=== PATIENT | male | born 1990 | race Caucasian/White ===

== ENCOUNTER 2018-11-20 13:46 | Inpatient (IN) | payer OTHER | END 2018-11-24 06:45 | disposition home or self-care (01) | LOC: YASAS 13:46 → Y6N 17:21 ==

== ENCOUNTER 2020-09-12 10:25 | Inpatient (IN) | payer OTHER ==
[2020-09-12 12:16] VITALS: BMI 41.5
[2020-09-12] MEDS ORDERED: BISMUTH SUBSALICYLATE 524 MG/30 ML UD PO PRN (14:15)
[2020-09-12] MEDS ORDERED: MAGNESIUM HYDROX 2400MG/30ML ORAL SUSPENSION 30 ML CUP PO PRN (14:15)
[2020-09-12] MEDS ORDERED: ONDANSETRON *ODT* 4 MG TABLET SL PRN (14:15)
[2020-09-12] MEDS ORDERED: LORazepam 1 MG TABLET PO PRN (14:15)
[2020-09-12] MEDS ORDERED: METHADONE HCL 10 MG TABLET (FOR DETOX USE ONLY) PO ONE (14:15)
[2020-09-12] MEDS ORDERED: NICOTINE POLACRILEX 2 MG GUM BUC PRN (14:15)
[2020-09-12] MEDS ORDERED: MAG HYDROX/AL HYDROX/SIMETH 30 ML UNIT-DOSE CUP PO PRN (14:15)
[2020-09-12] MEDS ORDERED: IBUPROFEN 400 MG TABLET (FP) PO PRN (14:15)
[2020-09-12] MEDS ORDERED: MENTHOL/PHENOL 1 EACH UD MM PRN (14:15)
[2020-09-12] MEDS ORDERED: MAGNESIUM CITRATE 300 ML BOTTLE PO PRN (14:15)
[2020-09-12] MEDS ORDERED: ACETAMINOPHEN 325 MG TABLET (FP) PO PRN ×2 (14:15)
[2020-09-12] MEDS ORDERED: METHOCARBAMOL 500 MG TABLET PO PRN (14:15)
[2020-09-12] MEDS: LORazepam 2 MG TABLET PO SCH ×2 (18:22→22:11)
[2020-09-12] MEDS: hydrOXYzine PAMOATE 25 MG CAPSULE (FP) PO SCH ×2 (18:23→22:13)
[2020-09-12] MEDS ORDERED: QUEtiapine FUMARATE 100 MG TABLET (FP) PO ONE (22:00)
[2020-09-12] MEDS: THIAMINE HCL 100 MG TABLET (FP) PO SCH (22:13)
[2020-09-12] MEDS: MELATONIN 5 MG TABLETS PO SCH (22:13)
[2020-09-13] MEDS: hydrOXYzine PAMOATE 25 MG CAPSULE (FP) PO SCH ×5 (05:54→22:30)
[2020-09-13] MEDS: LORazepam 2 MG TABLET PO SCH ×4 (05:54→22:29)
[2020-09-13] MEDS ORDERED: METHADONE HCL 5 MG TABLET (FOR DETOX USE ONLY) ONE (09:21)
[2020-09-13] MEDS ORDERED: METHADONE HCL 10 MG TABLET (FOR DETOX USE ONLY) ONE (09:21)
[2020-09-13] MEDS ORDERED: METHADONE (DETOX) 20 MG, METHADONE (DETOX) 5 MG PO ONE (10:00)
[2020-09-13] MEDS: PRENATAL VITAMINS W/ FOLIC ACID TABLET (FP) PO SCH (10:09)
[2020-09-13] MEDS: NICOTINE 21 MG/24 HOURS TOPICAL PATCH TD SCH (10:10)
[2020-09-13 10:41] LABS: POTASSIUM 4.2 mmol/L (3.5-5.1)
[2020-09-13 10:44] LABS: CALCIUM 8.7 mg/dL (8.5-10.1)
[2020-09-13 10:45] LABS: ALBUMIN 3.6 g/dl (3.4-5.0)
[2020-09-13 10:47] LABS: HEMATOCRIT 40.6 % (35.4-49); MCHC 34.5 g/dl (32.0-35.9); MEAN CELL VOLUME 81.3 fl (80-96); MEAN PLT VOLUME 8.6 fl (7.5-11.1); PLATELET COUNT 252 K/MM3 (134-434); RBC 4.99 M/mm3 (4.00-5.60); WHITE BLOOD COUNT 7.5 K/mm3 (4.0-10.0)
[2020-09-13 10:48] LABS: CREATININE 0.9 mg/dL (0.55-1.3)
[2020-09-13 10:49] LABS: BILIRUBIN,TOTAL 0.8 mg/dL (0.2-1)
[2020-09-13 10:50] LABS: TOT PROT 6.4 g/dl (6.4-8.2)
[2020-09-13] MEDS: cloNIDine HCL 0.1 MG TABLET PO PRN (17:47)
[2020-09-13] MEDS: MELATONIN 5 MG TABLETS PO SCH (22:30)
[2020-09-13] MEDS: THIAMINE HCL 100 MG TABLET (FP) PO SCH (22:30)
[2020-09-13] MEDS: QUEtiapine FUMARATE 100 MG TABLET (FP) PO PRN (22:31)
[2020-09-14] MEDS: hydrOXYzine PAMOATE 25 MG CAPSULE (FP) PO SCH ×5 (05:37→22:09)
[2020-09-14] MEDS: LORazepam 1 MG TABLET PO SCH ×4 (05:37→22:05)
[2020-09-14] MEDS ORDERED: METHADONE HCL 10 MG TABLET (FOR DETOX USE ONLY) PO ONE (10:00)
[2020-09-14] MEDS: NICOTINE 21 MG/24 HOURS TOPICAL PATCH TD SCH (10:19)
[2020-09-14] MEDS: PRENATAL VITAMINS W/ FOLIC ACID TABLET (FP) PO SCH (10:19)
[2020-09-14] MEDS: cloNIDine HCL 0.1 MG TABLET PO PRN ×2 (11:47→17:45)
[2020-09-14] MEDS ORDERED: COLLOIDAL OATMEAL 1 BAR EACH TP PRN (12:00)
[2020-09-14] MEDS: THIAMINE HCL 100 MG TABLET (FP) PO SCH (22:06)
[2020-09-14] MEDS: MELATONIN 5 MG TABLETS PO SCH (22:06)
[2020-09-14] MEDS: QUEtiapine FUMARATE 100 MG TABLET (FP) PO PRN (22:07)
[2020-09-15] MEDS ORDERED: LORazepam 0.5 MG TABLET PO PRN
[2020-09-15] MEDS: hydrOXYzine PAMOATE 25 MG CAPSULE (FP) PO SCH ×3 (05:19→14:05)
[2020-09-15] MEDS: LORazepam 0.5 MG TABLET PO SCH ×4 (05:19→22:17)
[2020-09-15] MEDS ORDERED: METHADONE (DETOX) 10 MG, METHADONE (DETOX) 5 MG PO ONE (10:00)
[2020-09-15] MEDS ORDERED: METHADONE HCL 10 MG TABLET (FOR DETOX USE ONLY) ONE (10:05)
[2020-09-15] MEDS ORDERED: METHADONE HCL 5 MG TABLET (FOR DETOX USE ONLY) ONE (10:05)
[2020-09-15] MEDS: NICOTINE 21 MG/24 HOURS TOPICAL PATCH TD SCH (10:45)
[2020-09-15] MEDS: PRENATAL VITAMINS W/ FOLIC ACID TABLET (FP) PO SCH (10:45)
[2020-09-15] MEDS: QUEtiapine FUMARATE 100 MG TABLET (FP) PO PRN (22:17)
[2020-09-15] MEDS: MELATONIN 5 MG TABLETS PO SCH (22:18)
[2020-09-15] MEDS: THIAMINE HCL 100 MG TABLET (FP) PO SCH (22:18)
[2020-09-16] MEDS ORDERED: LORazepam 0.5 MG TABLET PO ONE (05:00)
[2020-09-16] MEDS ORDERED: METHADONE HCL 10 MG TABLET (FOR DETOX USE ONLY) PO ONE (10:00)
[2020-09-16] MEDS: PRENATAL VITAMINS W/ FOLIC ACID TABLET (FP) PO SCH (10:09)
[2020-09-16] MEDS: NICOTINE 21 MG/24 HOURS TOPICAL PATCH TD SCH (10:09)
[2020-09-16] MEDS: hydrOXYzine PAMOATE 25 MG CAPSULE (FP) PO PRN ×2 (10:10→18:21)
[2020-09-16] MEDS: cloNIDine HCL 0.1 MG TABLET PO PRN ×2 (13:24→22:25)
[2020-09-16] MEDS: THIAMINE HCL 100 MG TABLET (FP) PO SCH (22:25)
[2020-09-16] MEDS: QUEtiapine FUMARATE 100 MG TABLET (FP) PO PRN (22:25)
[2020-09-16] MEDS: MELATONIN 5 MG TABLETS PO SCH (23:45)
[2020-09-17] MEDS ORDERED: METHADONE HCL 5 MG TABLET (FOR DETOX USE ONLY) PO ONE (06:00)
[2020-09-17] MEDS: cloNIDine HCL 0.1 MG TABLET PO PRN (06:02)
[2020-09-17 09:28] VITALS: BP 128/75; PULSE 95; TEMP 96.8
== END 2020-09-17 09:30 | disposition home or self-care (01) | DRG 773 ==
LOC: YASAS 10:25 → Y6N 13:56
PROVIDERS: ADMIT Allergy & Immunology; ATTEND Allergy & Immunology
PROC: HZ2ZZZZ Detoxification Services for Substance Abuse Treatment (ICD-10-PCS; principal; 2020-09-12)
DX: F11.23 Opioid dependence with withdrawal (principal); F13.230 Sedative, hypnotic or anxiolytic dependence with withdrawal, uncomplicated; F17.210 Nicotine dependence, cigarettes, uncomplicated; F19.282 Other psychoactive substance dependence with psychoactive substance-induced sleep disorder; G47.00 Insomnia, unspecified; R00.0 Tachycardia, unspecified; E66.9 Obesity, unspecified; Z68.41 Body mass index [BMI] 40.0-44.9, adult
CPT/HCPCS: 36415; 80053; 85027; 86780; C9803; J0735; U0003

== ENCOUNTER 2022-07-16 12:31 | Inpatient (IN) | payer OTHER ==
[2022-07-16 15:18] VITALS: BMI 40.6
[2022-07-16] MEDS ORDERED: IBUPROFEN 400 MG TABLET (FP) PO PRN (15:46)
[2022-07-16] MEDS ORDERED: NALOXONE HCL (KLOXXADO) 8 MG SPRAY NS PRN (15:46)
[2022-07-16] MEDS ORDERED: MAGNESIUM HYDROX 2400MG/30ML ORAL SUSPENSION 30 ML CUP PO PRN (15:46)
[2022-07-16] MEDS ORDERED: MAG HYDROX/AL HYDROX/SIMETH 30 ML UNIT-DOSE CUP PO PRN (15:46)
[2022-07-16] MEDS ORDERED: ACETAMINOPHEN 325 MG TABLET (FP) PO PRN ×2 (15:46)
[2022-07-16] MEDS ORDERED: ONDANSETRON *ODT* 4 MG TABLET SL PRN (15:46)
[2022-07-16] MEDS ORDERED: POLYETHYLENE GLYCOL (HEALTHYLAX) 3350 17 GM PACKET PO PRN (15:46)
[2022-07-16] MEDS ORDERED: DICYCLOMINE HCL 10 MG CAPSULE PO PRN (15:46)
[2022-07-16] MEDS ORDERED: BENZOCAINE/MENTHOL (CHLORASEPTIC ) LOZENGE MM PRN (15:46)
[2022-07-16] MEDS ORDERED: IBUPROFEN 600 MG TABLET (FP) PO PRN (15:46)
[2022-07-16] MEDS ORDERED: LOPERAMIDE HCL 2 MG CAPSULE PO PRN (15:46)
[2022-07-16] MEDS ORDERED: BISMUTH SUBSALICYLATE 524 MG/30 ML PO PRN (15:46)
[2022-07-16] MEDS: hydrOXYzine PAMOATE 25 MG CAPSULE (FP) PO PRN (16:40)
[2022-07-16] MEDS: METHOCARBAMOL 500 MG TABLET PO PRN (16:40)
[2022-07-16] MEDS: diazePAM 5 MG TABLET PO SCH ×2 (16:40→22:00)
[2022-07-16] MEDS ORDERED: QUEtiapine FUMARATE 100 MG TABLET (FP) PO ONE (18:49)
[2022-07-16] MEDS: THIAMINE HCL 100 MG TABLET (FP) PO SCH (21:59)
[2022-07-16] MEDS ORDERED: MELATONIN 5 MG TABLETS PO SCH (22:00)
[2022-07-17] MEDS: diazePAM 5 MG TABLET PO SCH ×4 (06:17→21:59)
[2022-07-17] MEDS: diazePAM 5 MG TABLET PO PRN (08:31)
[2022-07-17] MEDS: METHOCARBAMOL 500 MG TABLET PO PRN (08:31)
[2022-07-17] MEDS: hydrOXYzine PAMOATE 25 MG CAPSULE (FP) PO PRN (08:31)
[2022-07-17] MEDS: PRENATAL VITAMINS W/ FOLIC ACID TABLET (FP) PO SCH (10:47)
[2022-07-17 11:42] LABS: HEMATOCRIT 44.4 % (35.4-49); HEMOGLOBIN 15.3 GM/dL (11.7-16.9); MCH 27.5 pg (25.7-33.7); MCHC 34.4 g/dl (32.0-35.9); MEAN CELL VOLUME 79.7 fl (80-96); MEAN PLT VOLUME 8.8 fl (7.5-11.1); PLATELET COUNT 280 10^3/uL (134-434); RBC 5.57 M/mm3 (4.00-5.60); RDW 15.8 % (11.9-15.9); WHITE BLOOD COUNT 13.3 K/mm3 (4.0-10.0)
[2022-07-17 11:50] LABS: ALBUMIN 4.2 g/dl (3.4-5.0); BLOOD UREA NITROGEN 19.8 mg/dL (7-18); CALCIUM 9.1 mg/dL (8.5-10.1)
[2022-07-17 11:55] LABS: BILIRUBIN,TOTAL 1.6 mg/dL (0.2-1); TOT PROT 7.3 g/dl (6.4-8.2)
[2022-07-17] MEDS: amLODIPine BESYLATE 5 MG TABLET (FP) PO SCH (15:56)
[2022-07-17] MEDS: QUEtiapine FUMARATE 100 MG TABLET (FP) PO SCH (21:59)
[2022-07-17] MEDS: THIAMINE HCL 100 MG TABLET (FP) PO SCH (21:59)
[2022-07-18] MEDS: diazePAM 5 MG TABLET PO SCH ×3 (05:26→21:14)
[2022-07-18] MEDS: diazePAM 5 MG TABLET PO PRN ×2 (08:10→17:41)
[2022-07-18 10:02] LABS: BASO % 0.4 % (0-2.0); HEMATOCRIT 44.1 % (35.4-49); HEMOGLOBIN 15.2 GM/dL (11.7-16.9); LYMPH % 17.9 % (8-40); MCH 27.4 pg (25.7-33.7); MCHC 34.3 g/dl (32.0-35.9); MEAN CELL VOLUME 79.7 fl (80-96); MONO % 8.2 % (3.8-10.2); NEUT % 73.5 % (42.8-82.8); PLATELET COUNT 271 10^3/uL (134-434); RBC 5.54 M/mm3 (4.00-5.60); RDW 15.9 % (11.9-15.9); WHITE BLOOD COUNT 11.3 K/mm3 (4.0-10.0)
[2022-07-18 10:06] LABS: CALCIUM 8.8 mg/dL (8.5-10.1)
[2022-07-18 10:07] LABS: BLOOD UREA NITROGEN 18.9 mg/dL (7-18)
[2022-07-18 10:10] LABS: BILIRUBIN,TOTAL 1.5 mg/dL (0.2-1); CREATININE 1.1 mg/dL (0.55-1.3)
[2022-07-18] MEDS: hydrOXYzine PAMOATE 25 MG CAPSULE (FP) PO PRN ×2 (10:20→21:16)
[2022-07-18] MEDS: METHOCARBAMOL 500 MG TABLET PO PRN ×2 (10:20→21:16)
[2022-07-18] MEDS: amLODIPine BESYLATE 5 MG TABLET (FP) PO SCH (10:20)
[2022-07-18] MEDS: PRENATAL VITAMINS W/ FOLIC ACID TABLET (FP) PO SCH (10:20)
[2022-07-18] MEDS: THIAMINE HCL 100 MG TABLET (FP) PO SCH (21:14)
[2022-07-18] MEDS: QUEtiapine FUMARATE 100 MG TABLET (FP) PO SCH (21:14)
[2022-07-19] MEDS: diazePAM 5 MG TABLET PO SCH ×2 (05:24→17:36)
[2022-07-19] MEDS: amLODIPine BESYLATE 5 MG TABLET (FP) PO SCH (10:03)
[2022-07-19] MEDS: PRENATAL VITAMINS W/ FOLIC ACID TABLET (FP) PO SCH (10:03)
[2022-07-19 12:20] LABS: HEMATOCRIT 45.4 % (35.4-49); HEMOGLOBIN 15.2 GM/dL (11.7-16.9); MCH 26.8 pg (25.7-33.7); MCHC 33.5 g/dl (32.0-35.9); MEAN CELL VOLUME 79.9 fl (80-96); MEAN PLT VOLUME 9.2 fl (7.5-11.1); PLATELET COUNT 294 10^3/uL (134-434); RBC 5.68 M/mm3 (4.00-5.60); RDW 16.1 % (11.9-15.9); WHITE BLOOD COUNT 11.3 K/mm3 (4.0-10.0)
[2022-07-19] MEDS: diazePAM 5 MG TABLET PO PRN (14:13)
[2022-07-19] MEDS: QUEtiapine FUMARATE 100 MG TABLET (FP) PO SCH (22:18)
[2022-07-19] MEDS: THIAMINE HCL 100 MG TABLET (FP) PO SCH (22:19)
[2022-07-20] MEDS ORDERED: diazePAM 5 MG TABLET PO ONE (06:00)
[2022-07-20 09:12] VITALS: BP 136/98; PULSE 100; RESP 19; TEMP 97.5
[2022-07-20] MEDS: amLODIPine BESYLATE 5 MG TABLET (FP) PO SCH (09:50)
[2022-07-20] MEDS: PRENATAL VITAMINS W/ FOLIC ACID TABLET (FP) PO SCH (09:50)
== END 2022-07-20 11:25 | disposition home or self-care (01) | DRG 773 ==
LOC: YASAS 12:31 → Y3N 16:18
PROVIDERS: ADMIT Allergy & Immunology; ATTEND Surgery
PROC: HZ2ZZZZ Detoxification Services for Substance Abuse Treatment (ICD-10-PCS; principal; 2022-07-16)
DX: F13.230 Sedative, hypnotic or anxiolytic dependence with withdrawal, uncomplicated (principal); F11.20 Opioid dependence, uncomplicated; F17.210 Nicotine dependence, cigarettes, uncomplicated; F19.280 Other psychoactive substance dependence with psychoactive substance-induced anxiety disorder; F19.282 Other psychoactive substance dependence with psychoactive substance-induced sleep disorder; F19.24 Other psychoactive substance dependence with psychoactive substance-induced mood disorder; F41.9 Anxiety disorder, unspecified; D72.829 Elevated white blood cell count, unspecified; G47.00 Insomnia, unspecified; E80.6 Other disorders of bilirubin metabolism; R79.89 Other specified abnormal findings of blood chemistry; E66.01 Morbid (severe) obesity due to excess calories; Z68.41 Body mass index [BMI] 40.0-44.9, adult; Z28.310 Unvaccinated for COVID-19; Z28.9 Immunization not carried out for unspecified reason
CPT/HCPCS: 36415; 80048; 80053; 82247; 85025; 85027; 86780; 87811; C9803-CS; Q0162; U0003; U0005